=== PATIENT | female | born 1995 | race Two or more races ===

== ENCOUNTER 2017-03-04 18:03 | Emergency (ER) | payer OTHER ==
[~2017-03-04 18:03] MED LIST: KEFLEX500 MG PO; MOTRIN800 MG PO; Motrin PO; NORCO 5/3251 TABLET PO
== END 2017-03-04 18:15 | disposition left against medical advice (07) ==
LOC: EME → EDBD 18:03 → EME 18:03
DX: T50.991A Poisoning by other drugs, medicaments and biological substances, accidental (unintentional), initial encounter (principal); Z53.21 Procedure and treatment not carried out due to patient leaving prior to being seen by health care provider
CPT/HCPCS: 99281; 99283; J2310